=== PATIENT | male | born 1965 | race Caucasian/White ===

== ENCOUNTER 2024-03-05 08:11 | Day surgery (SDC) | payer BC, SELFPAY ==
[2024-03-05] VITALS (13 sets, daily range): BP systolic 95–129; BP diastolic 54–75; BMI 32.4
[2024-03-05] MEDS: NSS 299 ML IV (09:07)
--- NOTE | 2024-03-05 10:34 | ITS.CL.CATH ---
[employer] - Catheterization
Cardiac Catheterization
Procedure Report:
CARDIAC CATHETERIZATION REPORT
Date of Procedure: 03/05/2024
Referring: Abe Ulrich MD
Indication: Exertional angina
HEMODYNAMIC DATA
AO: 108/72
LV: 108/14
LEFT VENTRICULOGRAPHY: Normal left-ventricular wall motion with EF 68%
CORONARY ANGIOGRAPHY
Dominance: Right
Left Main: Normal
LAD: Mild calcification with focal 20% mid LAD stenosis and otherwise mild luminal irregularities
Circumflex: Trivial luminal irregularities
RCA: Mild luminal irregularities
Closure Device: None-the procedure was performed via the right radial artery. The Medardo's test was normal prior to the procedure.
Radiation (mGy): 373
DAP (cm2.Gy): 37.7
Fluoroscopy time: 6.6 minutes
CONCLUSIONS
1: Normal left ventricular function with EF 68%
2: Very mild nonobstructive CAD as described
3. Recommend statin with goal LDL 55 and low-dose aspirin
Copy to: Abe Ulrich MD, Lawrence Olguin MD
Nirav Alberto MD, LOCATED WITHIN [facility], [facility]
== END 2024-03-05 13:35 | disposition home or self-care (01) ==
LOC: CATH 08:11
PROVIDERS: ATTENDING PHYSICIAN Internal Medicine Cardiovascular Disease; FAMILY PHYSICIAN Internal Medicine; OTHER PHYSICIAN Internal Medicine Cardiovascular Disease
DX: I25.118 Atherosclerotic heart disease of native coronary artery with other forms of angina pectoris (principal); R07.9 Chest pain, unspecified; I10 Essential (primary) hypertension; E78.5 Hyperlipidemia, unspecified; Z79.82 Long term (current) use of aspirin
CPT/HCPCS: 93458; C1894; Q9967